=== PATIENT | female | born 1935 | race Caucasian/White ===

== ENCOUNTER 2020-06-08 03:17 | Inpatient (IN) | payer MEDICARE ==
[2020-06-08] MEDS ORDERED: TYLENOL EXTRA STRENGTH 500 MG PO STA (03:59)
[2020-06-08] MEDS ORDERED: Sodium Chloride 0.9% 1000 ML 1,000 ML IV SCH ×2 (04:00→07:24)
--- NOTE | 2020-06-08 04:00 | ERPHSYRPT ---
- History of Present Illness Time Seen by Provider: 06/08/20 03:45 Source: patient, EMS, [facility] Exam Limitations: no limitations Patient Subjective Stated Complaint: per [facility] staff, pt had sudden onset of sob and weakness tonight. pt has been tested for covid 19 yesterday. o2 sats 80% on room air per [facility] staff. increased to 88 with o2 at 3l per nc Triage Nursing Assessment: pt awake and alert, with confusion noted. pt arrive per ambulance and transfers to [facility] with total assist of 3. skin hot and dry. respirations nonlabored. lung sounds coarse bilat. o2 at 4l per nc in place on arrival per ems. Physician History: This is an 84-year-old white female resident of [facility] who has dementia and confusion chronically. She has had a 1 day history of shortness of air hypoxia and weakness as well as fever. Patient's room air oxygenation was 80%. This increased to 88% on 3 L oxygen nasal cannula. COVID-19 swab was performed on 06/07/2020 but the results are still pending. Patient has a history of atrial fibrillation and hypertension. Patient is DO NOT RESUSCITATE patient. Timing/Duration: today Fever Severity: moderate Fever Therapy HULL SORTER: none Associated Symptoms: confusion, shortness of breath, weakness, No chest pain Allergies/Adverse Reactions: Penicillins Allergy (Mild, Verified 06/08/20 03:33) Home Medications: Lisinopril 20 mg [Zestril 20 MG] 40 mg PO DAILY 06/12/13 [History] Acetaminophen 325 mg [Tylenol 325 mg] 2 tab PO Q4HPRN PRN 06/08/20 [History] Ascorbic Acid [Vitamin C] 1,000 mg PO DAILY 06/08/20 [History] Aspirin EC 81 mg [Ecotrin 81 mg] 1 tab PO DAILY 06/08/20 [History] Cholecalciferol (Vitamin D3) [Vitamin D3] 2 tab PO DAILY 06/08/20 [History] Furosemide 40 mg PO DAILY 06/08/20 [History] Gabapentin 1 tab PO HS 06/08/20 [History] Multivitamin [Multivitamins] 1 tab PO DAILY 06/08/20 [History] Potassium Chloride 1 tab PO BID 06/08/20 [History] Simvastatin 1 tab PO HS 06/08/20 [History] Zinc 0.5 tab PO DAILY 06/08/20 [History] Hx Tetanus, Diphtheria Vaccination/Date Given: No (unknown) Hx Influenza Vaccination/Date Given: No Hx Pneumococcal Vaccination/Date Given: No Immunizations Up to Date: No Travel Risk - International Travel Have you traveled outside of the country in past 3 weeks: No - Coronavirus Screening Are you exhibiting any of the following symptoms?: Yes Symptoms: Fever, Shortness of Breath Close contact with a COVID-19 positive Pt in past 14-21 Days: Yes - Review of Systems Constitutional: Fever, Weakness Eyes: No Symptoms Ears, Nose, & Throat: No Symptoms Respiratory: Dyspnea, No Cough Cardiac: No Symptoms Abdominal/Gastrointestinal: No Symptoms Genitourinary Symptoms: No Symptoms Musculoskeletal: No Symptoms Skin: No Symptoms Neurological: No Symptoms Psychological: No Symptoms Endocrine: No Symptoms Hematologic/Lymphatic: No Symptoms Immunological/Allergic: No Symptoms All Other Systems: Reviewed and Negative - Past Medical History Pertinent Past Medical History: Yes Neurological History: Dementia, Other ENT History: No Pertinent History Cardiac History: Coronary Artery Disease, High Cholesterol, Hypertension Respiratory History: No Pertinent History Endocrine Medical History: Diabetes Type I Musculoskeletal History: No Pertinent History GI Medical History: No Pertinent History History: No Pertinent History Psycho-Social History: No Pertinent History Female Reproductive Disorders: No Pertinent History Other Medical History: pvd, neuropathy - Past Surgical History Past Surgical History: Yes Cardiac: Cardiac Stent Gastrointestinal: Appendectomy, Cholecystectomy Musculoskeletal: Orthopedic Surgery Other Surgical History: unable to obtain hx from pt - Social History Smoking Status: Never smoker Exposure to second hand smoke: No Drug Use: none Patient Lives Alone: No - Nursing Vital Signs Nursing Vital Signs: Initial Vital Signs Temperature 100.4 F 06/08/20 03:38 Pulse Rate 92 H 06/08/20 03:38 Respiratory Rate 22 06/08/20 03:38 Blood Pressure 113/58 06/08/20 03:38 O2 Sat by Pulse Oximetry 93 L 06/08/20 03:38 Pain Scale Pain Intensity 2 - Physical Exam General Appearance: no apparent distress, alert, obese Eye Exam: PERRL/EOMI, eyes nml inspection ENT Exam: normal ENT inspection, no apparent trauma, hearing grossly normal, TMs normal Neck Exam: normal inspection, non-tender, supple, full range of motion, trachea midline Respiratory Exam: normal breath sounds, chest non-tender, lungs clear, no respiratory distress, no accessory muscle use Cardiovascular/Chest Exam: normal heart sounds, regular rate/rhythm, normal peripheral pulses Gastrointestinal/Abdominal Exam: soft, non tender, No no distention, No no mass, No no guarding Pelvic Exam: not done Rectal Exam: not done Extremity Exam: non-tender, normal range of motion, normal inspection Neurologic Exam: alert, oriented x 3, cooperative, hospital nurse liaison II-XII nml as tested Skin Exam: normal color, warm, dry Lymphatic: No adenopathy SpO2: 93 O2 Delivery: Nasal Cannula (3 liters) - Course Nursing assessment & vital signs reviewed: Yes EKG Interpreted by Me: RATE (106), A-fib, NORMAL AXIS, Other (Comparison EKG is dated 11/21/2014. When we compare the 2 EKGs normal axis is persistent. There is atrial fib flutter on both EKGs. The QRS is prolonged on the new EKG.) Ordered Tests: Active Orders 24 hr Category Date Time Status Assistant Executive Housekeeper STAT Care 06/08/20 04:04 Active Catheter-[place] STAT Care 06/08/20 03:59 Active EKG-ER Only STAT Care 06/08/20 03:59 Active IV Insertion STAT Care 06/08/20 03:59 Active Isolation, Initiate & Maintain STAT Care 06/08/20 04:00 Active Pulse Oximetry (ED) ROUTINE Care 06/08/20 04:00 Active CHEST 1 VIEW (PORTABLE) Stat Exams 06/08/20 04:07 Taken BLOOD CULTURE Stat Lab 06/08/20 04:15 Received BLOOD CULTURE Stat Lab 06/08/20 05:32 Received CBC W DIFF Stat Lab 06/08/20 04:15 Completed CMP Stat Lab 06/08/20 04:15 Completed CULTURE,URINE Stat Lab 06/08/20 04:50 Received Ferritin Stat Lab 06/08/20 04:15 Completed LDH-LACTATE DEHYDROGENASE Stat Lab 06/08/20 04:15 Completed Lactic Acid Stat Lab 06/08/20 04:20 Completed [place] Screen Stat Lab 06/08/20 04:15 Completed PROTIME WITH INR Stat Lab 06/08/20 04:15 Completed TROPONIN Q3H Lab 06/08/20 04:15 Completed TROPONIN Q3H Lab 06/08/20 07:00 Ordered TROPONIN Q3H Lab 06/08/20 10:00 Ordered TROPONIN Q3H Lab 06/08/20 13:00 Ordered TROPONIN Q3H Lab 06/08/20 16:00 Ordered UA W/RFX UR CULTURE Stat Lab 06/08/20 04:50 Completed Transfer Order Routine Transfer 06/08/20 Ordered Medication Summary Generic Name Dose Route Start Last Admin Trade Name Linda PRN Reason Stop Dose Admin Sodium Chloride 1,000 mls @ 50 mls/hr 06/08/20 04:00 06/08/20 04:21 Sodium Chloride 0.9% 1000 Ml IV 07/08/20 03:59 50 mls/hr .Q20H YIFAN Administration Discontinued Medications Generic Name Dose Route Start Last Admin Trade Name Linda PRN Reason Stop Dose Admin Acetaminophen 500 mg 06/08/20 03:59 06/08/20 04:20 Tylenol Extra Strength 500 Mg PO 06/08/20 04:00 500 mg STAT STA Administration Acetaminophen Confirm 06/08/20 04:20 Tylenol Extra Strength 500 Mg Administered 06/08/20 04:21 Dose 500 mg .ROUTE .SportStylist-MED ONE Lab/Rad Data: Laboratory Result Diagrams 06/08/20 04:15 06/08/20 04:15 Laboratory Results 06/08/20 06/08/20 06/08/20 Range/Units 04:50 04:20 04:15 WBC (4.0-10.5) K/mm3 RBC (4.1-5.4) M/mm3 Hgb (12.0-16.0) gm/dl Hct (35-47) % MCV (78-100) fl MCH (26-32) pg MCHC (32-36) g/dl RDW (11.5-14.0) % Plt Count (150-450) K/mm3 MPV (7.5-11.0) fl Gran % (36.0-66.0) % Eos # (Auto) (0-0.5) Absolute Lymphs (auto) (1.0-4.6) Absolute Monos (auto) (0.0-1.3) Lymphocytes % (24.0-44.0) % Monocytes % (0.0-12.0) % Eosinophils % (0.00-5.0) % Basophils % (0.0-0.4) % Absolute Granulocytes (1.4-6.9) Basophils # (0-0.4) PT (9.95-12.35) SECONDS INR (0.8-3.0) Sodium 136 L (137-145) mmol/L Potassium 4.3 (3.5-5.1) mmol/L Chloride 103 (98-107) mmol/L Carbon Dioxide 21 L (22-30) mmol/L Anion Gap 15.5 H (5-15) MEQ/L BUN 26 H (7-17) mg/dL Creatinine 1.00 (0.52-1.04) mg/dL Estimated GFR 55.9 ML/MIN Glucose 196 H (74-106) mg/dL Lactic Acid 2.9 H (0.4-2.0) Calcium 8.9 (8.4-10.2) mg/dL Ferritin (11.1-264) ng/mL Total Bilirubin 1.10 (0.2-1.3) mg/dL AST 50 H (14-36) U/L ALT 31 (0-35) U/L Alkaline Phosphatase 72 (38-126) U/L Lactate Dehydrogenase (120-246) U/L Troponin I (0.000-0.034) ng/mL Serum Total Protein 7.4 (6.3-8.2) g/dL Albumin 4.1 (3.5-5.0) g/dL Urine Color YELLOW (YELLOW) Urine Appearance SLIGHTLY CLOUDY (CLEAR) Urine pH 5.0 (5-6) Ur Specific [place] 1.020 (1.005-1.025) Urine Protein 30 (Negative) Urine Ketones NEGATIVE (NEGATIVE) Urine Blood NEGATIVE (0-5) Tushar/ul Urine Nitrite NEGATIVE (NEGATIVE) Urine Bilirubin NEGATIVE (NEGATIVE) Urine Urobilinogen NEGATIVE (0-1) mg/dL Ur Leukocyte Esterase NEGATIVE (NEGATIVE) Urine WBC (Auto) NONE (0-5) /HPF Urine RBC (Auto) NONE (0-2) /HPF U Epithel Cells (Auto) NONE (FEW) /HPF Urine Bacteria (Auto) NONE (NEGATIVE) /HPF Urine Mucus (Auto) SLIGHT (NEGATIVE) /HPF Urine Culture Reflexed NO (NO) Urine Glucose NEGATIVE (NEGATIVE) mg/dL Monoscreen (Negative) Influenza Type A Ag (NEGATIVE) Influenza Type B Ag (NEGATIVE) RSV (PCR) (Negative) SARS-CoV-2 (PCR) (NEGATIVE) Group A Strep Antibody (NEGATIVE) Slides for Path Review 06/08/20 06/08/20 06/08/20 Range/Units 04:15 04:15 04:15 WBC (4.0-10.5) K/mm3 RBC (4.1-5.4) M/mm3 Hgb (12.0-16.0) gm/dl Hct (35-47) % MCV (78-100) fl MCH (26-32) pg MCHC (32-36) g/dl RDW (11.5-14.0) % Plt Count (150-450) K/mm3 MPV (7.5-11.0) fl Gran % (36.0-66.0) % Eos # (Auto) (0-0.5) Absolute Lymphs (auto) (1.0-4.6) Absolute Monos (auto) (0.0-1.3) Lymphocytes % (24.0-44.0) % Monocytes % (0.0-12.0) % Eosinophils % (0.00-5.0) % Basophils % (0.0-0.4) % Absolute Granulocytes (1.4-6.9) Basophils # (0-0.4) PT (9.95-12.35) SECONDS INR (0.8-3.0) Sodium (137-145) mmol/L Potassium (3.5-5.1) mmol/L Chloride (98-107) mmol/L Carbon Dioxide (22-30) mmol/L Anion Gap (5-15) MEQ/L BUN (7-17) mg/dL Creatinine (0.52-1.04) mg/dL Estimated GFR ML/MIN Glucose (74-106) mg/dL Lactic Acid (0.4-2.0) Calcium (8.4-10.2) mg/dL Ferritin 360 H (11.1-264) ng/mL Total Bilirubin (0.2-1.3) mg/dL AST (14-36) U/L ALT (0-35) U/L Alkaline Phosphatase (38-126) U/L Lactate Dehydrogenase (120-246) U/L Troponin I (0.000-0.034) ng/mL Serum Total Protein (6.3-8.2) g/dL Albumin (3.5-5.0) g/dL Urine Color (YELLOW) Urine Appearance (CLEAR) Urine pH (5-6) Ur Specific [place] (1.005-1.025) Urine Protein (Negative) Urine Ketones (NEGATIVE) Urine Blood (0-5) Tushar/ul Urine Nitrite (NEGATIVE) Urine Bilirubin (NEGATIVE) Urine Urobilinogen (0-1) mg/dL Ur Leukocyte Esterase (NEGATIVE) Urine WBC (Auto) (0-5) /HPF Urine RBC (Auto) (0-2) /HPF U Epithel Cells (Auto) (FEW) /HPF Urine Bacteria (Auto) (NEGATIVE) /HPF Urine Mucus (Auto) (NEGATIVE) /HPF Urine Culture Reflexed (NO) Urine Glucose (NEGATIVE) mg/dL Monoscreen NEGATIVE (Negative) Influenza Type A Ag NEGATIVE (NEGATIVE) Influenza Type B Ag NEGATIVE (NEGATIVE) RSV (PCR) NEGATIVE (Negative) SARS-CoV-2 (PCR) POSITIVE A (NEGATIVE) Group A Strep Antibody NOT DETECTED (NEGATIVE) Slides for Path Review 06/08/20 06/08/20 06/08/20 Range/Units 04:15 04:15 04:15 WBC (4.0-10.5) K/mm3 RBC (4.1-5.4) M/mm3 Hgb (12.0-16.0) gm/dl Hct (35-47) % MCV (78-100) fl MCH (26-32) pg MCHC (32-36) g/dl RDW (11.5-14.0) % Plt Count (150-450) K/mm3 MPV (7.5-11.0) fl Gran % (36.0-66.0) % Eos # (Auto) (0-0.5) Absolute Lymphs (auto) (1.0-4.6) Absolute Monos (auto) (0.0-1.3) Lymphocytes % (24.0-44.0) % Monocytes % (0.0-12.0) % Eosinophils % (0.00-5.0) % Basophils % (0.0-0.4) % Absolute Granulocytes (1.4-6.9) Basophils # (0-0.4) PT 14.5 H (9.95-12.35) SECONDS INR 1.28 (0.8-3.0) Sodium (137-145) mmol/L Potassium (3.5-5.1) mmol/L Chloride (98-107) mmol/L Carbon Dioxide (22-30) mmol/L Anion Gap (5-15) MEQ/L BUN (7-17) mg/dL Creatinine (0.52-1.04) mg/dL Estimated GFR ML/MIN Glucose (74-106) mg/dL Lactic Acid (0.4-2.0) Calcium (8.4-10.2) mg/dL Ferritin (11.1-264) ng/mL Total Bilirubin (0.2-1.3) mg/dL AST (14-36) U/L ALT (0-35) U/L Alkaline Phosphatase (38-126) U/L Lactate Dehydrogenase 198 (120-246) U/L Troponin I 0.472 H* (0.000-0.034) ng/mL Serum Total Protein (6.3-8.2) g/dL Albumin (3.5-5.0) g/dL Urine Color (YELLOW) Urine Appearance (CLEAR) Urine pH (5-6) Ur Specific [place] (1.005-1.025) Urine Protein (Negative) Urine Ketones (NEGATIVE) Urine Blood (0-5) Tushar/ul Urine Nitrite (NEGATIVE) Urine Bilirubin (NEGATIVE) Urine Urobilinogen (0-1) mg/dL Ur Leukocyte Esterase (NEGATIVE) Urine WBC (Auto) (0-5) /HPF Urine RBC (Auto) (0-2) /HPF U Epithel Cells (Auto) (FEW) /HPF Urine Bacteria (Auto) (NEGATIVE) /HPF Urine Mucus (Auto) (NEGATIVE) /HPF Urine Culture Reflexed (NO) Urine Glucose (NEGATIVE) mg/dL Monoscreen (Negative) Influenza Type A Ag (NEGATIVE) Influenza Type B Ag (NEGATIVE) RSV (PCR) (Negative) SARS-CoV-2 (PCR) (NEGATIVE) Group A Strep Antibody (NEGATIVE) Slides for Path Review 06/08/20 Range/Units 04:15 WBC 10.5 (4.0-10.5) K/mm3 RBC 4.34 (4.1-5.4) M/mm3 Hgb 13.9 (12.0-16.0) gm/dl Hct 43.2 (35-47) % MCV 99.5 (78-100) fl MCH 32.0 (26-32) pg MCHC 32.2 (32-36) g/dl RDW 13.5 (11.5-14.0) % Plt Count 124 L (150-450) K/mm3 MPV 12.6 H (7.5-11.0) fl Gran % 90.1 H (36.0-66.0) % Eos # (Auto) 0 (0-0.5) Absolute Lymphs (auto) 0.41 L (1.0-4.6) Absolute Monos (auto) 0.62 (0.0-1.3) Lymphocytes % 3.9 L (24.0-44.0) % Monocytes % 5.9 (0.0-12.0) % Eosinophils % 0.0 (0.00-5.0) % Basophils % 0.1 (0.0-0.4) % Absolute Granulocytes 9.43 H (1.4-6.9) Basophils # 0.01 (0-0.4) PT (9.95-12.35) SECONDS INR (0.8-3.0) Sodium (137-145) mmol/L Potassium (3.5-5.1) mmol/L Chloride (98-107) mmol/L Carbon Dioxide (22-30) mmol/L Anion Gap (5-15) MEQ/L BUN (7-17) mg/dL Creatinine (0.52-1.04) mg/dL Estimated GFR ML/MIN Glucose (74-106) mg/dL Lactic Acid (0.4-2.0) Calcium (8.4-10.2) mg/dL Ferritin (11.1-264) ng/mL Total Bilirubin (0.2-1.3) mg/dL AST (14-36) U/L ALT (0-35) U/L Alkaline Phosphatase (38-126) U/L Lactate Dehydrogenase (120-246) U/L Troponin I (0.000-0.034) ng/mL Serum Total Protein (6.3-8.2) g/dL Albumin (3.5-5.0) g/dL Urine Color (YELLOW) Urine Appearance (CLEAR) Urine pH (5-6) Ur Specific [place] (1.005-1.025) Urine Protein (Negative) Urine Ketones (NEGATIVE) Urine Blood (0-5) Tushar/ul Urine Nitrite (NEGATIVE) Urine Bilirubin (NEGATIVE) Urine Urobilinogen (0-1) mg/dL Ur Leukocyte Esterase (NEGATIVE) Urine WBC (Auto) (0-5) /HPF Urine RBC (Auto) (0-2) /HPF U Epithel Cells (Auto) (FEW) /HPF Urine Bacteria (Auto) (NEGATIVE) /HPF Urine Mucus (Auto) (NEGATIVE) /HPF Urine Culture Reflexed (NO) Urine Glucose (NEGATIVE) mg/dL Monoscreen (Negative) Influenza Type A Ag (NEGATIVE) Influenza Type B Ag (NEGATIVE) RSV (PCR) (Negative) SARS-CoV-2 (PCR) (NEGATIVE) Group A Strep Antibody (NEGATIVE) Slides for Path Review YES - Progress Progress: improved, re-examined Progress Note: 06/08/20 06:09 Chest x-ray reveals left lower lobe infiltrate Discussed with Dr.: Other (Janelle Rosenthal) Counseled pt/family regarding: lab results, diagnosis, need for follow-up, rad results - Departure Departure Disposition: In-patient Admission Clinical Impression: Pneumonia due to COVID-19 virus, Elevated troponin Condition: Fair Critical Care Time: Yes Critical Care Time(excluding separately billable procedures): Critical 30-74 mins Referrals: EMILY FOOTE [Primary Care Provider] -
[2020-06-08] MEDS ORDERED: TYLENOL EXTRA STRENGTH 500 MG ONE (04:20)
[2020-06-08] MEDS ORDERED: Sodium Chloride 0.9% 1000 ML 1,000 ML ONE (04:20)
[2020-06-08 04:40] LABS: Absolute Neutrophil Ct (ANC) 9.43 (1.4-6.9); BASOPHIL % 0.1 % (0.0-0.4); Basophil (Absolute #) 0.01 (0-0.4); Eosinophil (Absolute #) 0 (0-0.5); Hematocrit 43.2 % (35-47); Hemoglobin 13.9 gm/dl (12.0-16.0); Lymphocyte (Absolute #) 0.41 (1.0-4.6); Lymphocytes % 3.9 % (24.0-44.0); Mean Cell Volume 99.5 fl (78-100); Mean Corpuscular Hgb Concent. 32.2 g/dl (32-36); Mean Platelet Volume 12.6 fl (7.5-11.0); Monocyte (Absolute #) 0.62 (0.0-1.3); Monocytes % 5.9 % (0.0-12.0); Neutrophil % 90.1 % (36.0-66.0); Platelet Count 124 K/mm3 (150-450); Red Blood Count 4.34 M/mm3 (4.1-5.4); Red Cell Distribution Width 13.5 % (11.5-14.0); White Blood Count 10.5 K/mm3 (4.0-10.5)
[2020-06-08 04:49] LABS: INR 1.28 (0.8-3.0); PROTIME 14.5 SECONDS (9.95-12.35)
[2020-06-08 05:06] LABS: Appearance SLIGHTLY CLOUDY (CLEAR); Bilirubin NEGATIVE (NEGATIVE); Blood NEGATIVE Ery/ul (0-5); Glucose NEGATIVE (NEGATIVE); Ketones NEGATIVE (NEGATIVE); Leukocyte Esterase NEGATIVE (NEGATIVE); Mucus SLIGHT /HPF (NEGATIVE); Nitrite NEGATIVE (NEGATIVE); Protein,Urine Dip 30 (Negative); Urobilinogen NEGATIVE mg/dL (0-1)
[2020-06-08 05:07] LABS: ALBUMIN 4.1 g/dL (3.5-5.0); ANION GAP 15.5 MEQ/L (5-15); BILIRUBIN,TOTAL 1.1 mg/dL (0.2-1.3); Calcium 8.9 mg/dL (8.4-10.2); Potassium 4.3 mmol/L (3.5-5.1); Total Protein 7.4 g/dL (6.3-8.2)
[2020-06-08 05:14] LABS: INFLUENZA A NEGATIVE (NEGATIVE); INFLUENZA B NEGATIVE (NEGATIVE); RESPIRATORY SYNCTIAL VIRUS NEGATIVE (Negative)
[2020-06-08 05:32] LABS: Slide Review 1 YES
[2020-06-08] MEDS ORDERED: Zofran 4 MG/2 ML VIAL IV PRN (07:24)
--- NOTE | 2020-06-08 08:28 | XRAY ---
Indication: Short of breath. Fever. Comparison: January 27, 2017. Portable chest demonstrates new hazy left lung base infiltrate versus atelectasis without consolidation or large effusion. Remaining heart and lungs unremarkable again with a few tiny calcified granulomas. Bony thorax intact again with mild osteopenia.
[2020-06-08] MEDS ORDERED: Ativan 0.5 MG PO PRN (10:40)
[2020-06-08] MEDS ORDERED: TYLENOL 325 MG PO PRN (10:42)
[2020-06-08] MEDS: Zestril 20 MG PO SCH (11:57)
[2020-06-08] MEDS: ECOTRIN 81 MG PO SCH (11:57)
[2020-06-08] MEDS: Lasix 40 MG PO SCH (11:57)
[2020-06-08] MEDS ORDERED: ZOFRAN ODT 4 MG PO PRN (14:50)
[2020-06-08] MEDS: TYLENOL 325 MG PO PRN ×2 (16:06→21:15)
[2020-06-08] MEDS: Klor Con 10 MEQ PO SCH (21:15)
[2020-06-08] MEDS ORDERED: ZOCOR 20MG PO SCH (22:00)
[2020-06-09] MEDS: TYLENOL 325 MG PO PRN (05:27)
[2020-06-09 05:45] LABS: Absolute Neutrophil Ct (ANC) 6.48 (1.4-6.9); BASOPHIL % 0.1 % (0.0-0.4); Basophil (Absolute #) 0.01 (0-0.4); Eosinophil (Absolute #) 0 (0-0.5); Hematocrit 45.1 % (35-47); Hemoglobin 14.4 gm/dl (12.0-16.0); Lymphocyte (Absolute #) 0.34 (1.0-4.6); Lymphocytes % 4.8 % (24.0-44.0); Mean Cell Volume 100.4 fl (78-100); Mean Corpuscular Hemoglobin 32.1 pg (26-32); Mean Corpuscular Hgb Concent. 31.9 g/dl (32-36); Mean Platelet Volume 12.4 fl (7.5-11.0); Monocyte (Absolute #) 0.32 (0.0-1.3); Monocytes % 4.5 % (0.0-12.0); Neutrophil % 90.6 % (36.0-66.0); Platelet Count 104 K/mm3 (150-450); Red Blood Count 4.49 M/mm3 (4.1-5.4); Red Cell Distribution Width 13.8 % (11.5-14.0); White Blood Count 7.2 K/mm3 (4.0-10.5)
[2020-06-09 06:07] LABS: ALBUMIN 4.1 g/dL (3.5-5.0); ANION GAP 13.6 MEQ/L (5-15); BILIRUBIN,TOTAL 1.3 mg/dL (0.2-1.3); Calcium 8.5 mg/dL (8.4-10.2); Creatinine 1 1.13 mg/dL (0.52-1.04); Potassium 4.3 mmol/L (3.5-5.1); Total Protein 7.7 g/dL (6.3-8.2)
[2020-06-09 07:18] LABS: Slide Review 1 YES
[2020-06-09 08:10] VITALS: O2SAT 90
[2020-06-09] MEDS: ECOTRIN 81 MG PO SCH (10:38)
[2020-06-09] MEDS: Zestril 20 MG PO SCH (10:38)
[2020-06-09] MEDS: Lasix 40 MG PO SCH (10:38)
[2020-06-09] MEDS: Klor Con 10 MEQ PO SCH (10:38)
[2020-06-09 13:04] VITALS: BP 128/56; PULSE 71
--- NOTE | 2020-06-10 13:39 | SSS ---
ADMISSION DIAGNOSES: 1) COVID. 2) Chest pain. DISCHARGE DIAGNOSES: 1) ACUTE MYOCARDIAL INFARCTION, STABLE. 2) CORONARY ARTERY DISEASE. 3) COVID. 4) COVID PNEUMONIA. 5) SEVERE ALZHEIMER'S. 6) ATELECTASIS OF THE LUNG. HISTORY OF PRESENT ILLNESS: The patient is an 84 year old white female who is at [facility]. She recently tested positive for COVID and then apparently had some chest pain and was brought to the emergency room. She has had dementia for numerous years. She had lived by herself with some dementia because I saw her when I was practicing three years ago and has moved to a longterm in the last year. Apparently they thought she was having chest pain and brought her in. She had a hazy left lung base, infiltrate versus atelectasis. She was afebrile. She was agitated, taking off her clothes and trying to get up, complaining about the catheter that they placed in the emergency room. Oxygen was okay. Emergency room lab tests were okay except elevated troponin and some macrocytosis. MCV 100. EKG showed no acute changes however there was a bundle branch block. Her troponin went up on two values and came down to 1.56 on 05/27/2020. She had no chest pain while she was back in the COVID unit and felt well except for complaining about the catheter, kept pulling at it, not comprehending what it was there for and getting out of bed. I do know that she had a temperature of 100.4F at one time in the emergency room. White count was normal. Due to temperature, chest pain, elevated troponins, she was admitted to the COVID unit. There the patient did fairly well and she slept all night and was kind of agitated but calmed down. She had no more chest pain. She ate fairly well. She had no arrhythmias. She is a No Code and she was not felt to be a candidate for any cardiac evaluation. Her chest was clear and she was breathing well and discharged. PLAN: The patient will be returned back to [facility] with the medicines she came in on. She will return if she becomes severely short of breath. PROGNOSIS: Guarded but fair.
== END 2020-06-09 13:55 | DRG 280 ==
LOC: ED 03:17 → MED SURG 06:40
PROVIDERS: ADMIT Family Medicine; ATTEND Family Medicine
DX: I21.9 Acute myocardial infarction, unspecified (principal); U07.1 COVID-19; J18.9 Pneumonia, unspecified organism; J98.11 Atelectasis; I25.10 Atherosclerotic heart disease of native coronary artery without angina pectoris; G30.9 Alzheimer's disease, unspecified; F02.80 Dementia in other diseases classified elsewhere, unspecified severity, without behavioral disturbance, psychotic disturbance, mood disturbance, and anxiety; E11.9 Type 2 diabetes mellitus without complications; E78.00 Pure hypercholesterolemia, unspecified; Z11.59 Encounter for screening for other viral diseases; I10 Essential (primary) hypertension; Z79.899 Other long term (current) drug therapy
CPT/HCPCS: 36000; 36415; 51702; 71045; 80053; 81001; 82728; 83605; 83615; 84484; 85025; 85610; 86308; 87040; 87086; 87631; 87651; 93005; 93041; 94760; 94762; 96360; 99284; 99291; U0003; Q0162; A9270-GY